=== PATIENT | male | born 1985 | race African-American/Black ===

== ENCOUNTER 2017-05-25 18:21 | Emergency (ER) | payer OTHER, MEDICARE ==
[~2017-05-25] VITALS: Ht 188 cm; Wt 93.0 kg
[~2017-05-25 18:21] MED LIST: AUGM875T PO; PRED50 PO
[2017-05-25 18:23] VITALS: BP 128/76; PULSE 63; RESP 12; TEMP 97.9; O2SAT 99
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
[2017-05-25 21:23] VITALS: BP 127/68
== END 2017-05-25 21:26 | disposition home or self-care (01) ==
LOC: NEPD 18:21
DX: S00.33XA Contusion of nose, initial encounter (principal); F17.210 Nicotine dependence, cigarettes, uncomplicated; W22.8XXA Striking against or struck by other objects, initial encounter
CPT/HCPCS: 70160; 99283

== ENCOUNTER 2017-10-11 13:58 | Emergency (ER) | payer MEDICARE, OTHER ==
[~2017-10-11] VITALS: Ht 188 cm; Wt 85.0 kg
[2017-10-11 14:02] VITALS: BP 137/81; PULSE 57; RESP 14; TEMP 98.6; O2SAT 100
[2017-10-11] MEDS ORDERED: BACT800T5 PO (14:33)
--- NOTE | 2017-10-11 14:35 | PD ---
HPI Chief Complaint: Skin Problem Time Seen by Provider: 14:23 Travel History International Travel<30 days: No Contact w/Intl Traveler<30days: No Traveled to known affect area: No History of Present Illness HPI This patient complains of an infected area on his left forearm. He says he got an insect bite there. Duration 3 days. Severity is mild to moderate. No fever or drainage. PFSH Past Medical History Medical History: Denies Significant Hx Diabetes: No Diminished Hearing: No Tetanus Vaccination: Unknown Influenza Vaccination: No Past Surgical History Surgical History: No Previous Surgery Social History Alcohol Use: Yes (occ) Tobacco Use: Yes (3 CIGS DAILY) Substance Use: No (MARIJUANA-denies) Allergies-Medications (Allergen,Severity, Reaction): Coded Allergies: No Known Allergies (Verified Adverse Reaction, Unknown, 10/11/17) Reported Meds & Prescriptions Reported Meds & Active Scripts Active No Active Prescriptions or Reported Medications Review of Systems General / Constitutional: No: Fever HENT: No: Headaches Cardiovascular: No: Chest Pain or Discomfort Physical Exam Narrative Psych: Normal mood and affect. Normal insight and judgment. GASTROINTESTINAL: Abdomen soft, non-tender, nondistended. Positive bowel sounds. No hepato-splenomegaly, or palpable masses. No guarding. Left forearm: There is an area of macular erythema but no drainage or fluctuance. SKIN: Focused skin assessment reveals no rash or ulcers. Skin is warm and dry. Palpation shows no induration or nodules. Data Data Last Documented VS Vital Signs Date Time Temp Pulse Resp B/P (MAP) Pulse Ox O2 Delivery O2 Flow Rate FiO2 10/11/17 14:21 17 10/11/17 14:02 98.6 57 137/81 (99) 100 [facility] Medical Decision Making Medical Screen Exam Complete: Yes Emergency Medical Condition: Yes Medical Record Reviewed: Yes Differential Diagnosis Cellulitis, abscess, boil Narrative Course I have reviewed the patient's electronic medical record. Patient is a minor cellulitis of the left forearm. One week of Bactrim prescribed Diagnosis Primary Impression: Cellulitis of left arm Additional Instructions: The patient was advised to follow up with their physician and return if they worsen. Med/Other Pt SpecificInfo: Prescription(s) given Scripts Sulfamethoxazole-Trimethoprim (Bactrim DS) 800-160 Mg Tab 1 TAB PO BID for Infection, #14 TAB 0 Refills Prov: Kocisko,Jacob J. MD 10/11/17 Disposition: 01 DISCHARGE HOME Condition: Stable Jacob Ayala MD October 11, 2017 14:35
== END 2017-10-11 14:46 | disposition home or self-care (01) ==
LOC: NEPD 13:58
DX: L03.114 Cellulitis of left upper limb (principal); F17.210 Nicotine dependence, cigarettes, uncomplicated; W57.XXXA Bitten or stung by nonvenomous insect and other nonvenomous arthropods, initial encounter
CPT/HCPCS: 99283